=== PATIENT | female | born 1985 | race Caucasian/White ===

== ENCOUNTER → 2020-04-28 | Outpatient (CLI) | payer BC, OTHER ==
[~2020-04-28] MED LIST: BACTRIM DS 8001 TA1 PO; KEFLEX500 MG PO; LANTUS100 U/ML SC; MEDROL DOSEPAK4 MG PO; METFORMIN1000 MG PO; METFORMIN500 MG PO; PRENATAL1 TA3 PO; TORADOL10 MG PO; TUMS X-STR300 MG PO; VICODIN 5/500 505 MG PO; ZANTAC 300300 MG PO
== END | disposition home or self-care (01) ==
LOC: US 15:39
DX: O28.8 Other abnormal findings on antenatal screening of mother (principal); Z3A.36 36 weeks gestation of pregnancy

== ENCOUNTER → 2020-08-24 | Outpatient (CLI) | payer OTHER | END | disposition home or self-care (01) | LOC: COVID19 14:43 | PROVIDERS: ATTEND Internal Medicine | DX: U07.1 COVID-19 (principal) ==

== ENCOUNTER → 2022-09-05 | Outpatient (CLI) | payer OTHER ==
[2022-09-07 15:06] LABS: TB1 Ag VALUE 0.02 IU/mL (.)
[2022-09-08 10:06] LABS: ALTERNARIA ALTERNATA, IGE <0.10 kU/L (Class 0); AMERICAN ELM, IGE 0.11 kU/L (Class 0/I); ASPERGILLUS FUMIGATU, IGE <0.10 kU/L (Class 0); BERMUDA GRASS, IGE 0.12 kU/L (Class 0/I); BIRCH, COMMON SILVER IGE 3.15 kU/L (Class III); CLADOSPORIUM HERBARU, IGE <0.10 kU/L (Class 0); D FARINAE MITE 9.76 kU/L (Class IV); D PTERONYSSINUS 6.74 kU/L (Class IV); MAPLE LEAF SYCAMORE, IGE 0.19 kU/L (Class 0/I); MAPLE/BOX ELDER, IGE 0.83 kU/L (Class II); MOUSE URINE IGE <0.10 kU/L (Class 0); PENICILLIUM CHRYSOGENUM, IGE <0.10 kU/L (Class 0); ROUGH PIGWEED, IGE <0.10 kU/L (Class 0); SHEEP SORREL (DOCK), IGE <0.10 kU/L (Class 0); SHORT RAGWEED, IGE 1.43 kU/L (Class III); WALNUT TREE, IGE 0.13 kU/L (Class 0/I); WHITE ASH, IGE 0.15 kU/L (Class 0/I); WHITE MULBERRY, IGE <0.10 kU/L (Class 0); WHITE OAK, IGE 2.36 kU/L (Class III)
[2022-09-09 00:05] LABS: CORN, IGE <0.10 kU/L (Class 0); MILK (COW), IGE <0.10 kU/L (Class 0); PEANUT, IGE 0.66 kU/L (Class II); SOYBEAN, IGE 0.19 kU/L (Class 0/I); WHEAT, IGE <0.10 kU/L (Class 0)
== END | disposition home or self-care (01) ==
LOC: LAB 12:52
PROVIDERS: ATTEND Family Medicine
DX: J45.40 Moderate persistent asthma, uncomplicated (principal)

== ENCOUNTER → 2022-11-23 | Outpatient (CLI) | payer OTHER ==
[2022-11-23 13:48] LABS: BASO # 0.1 10*3/uL (0.0-0.1); BASO % 1.1 % (0.0-1.0); EOS # 0.1 10*3/uL (0.0-0.4); HEMATOCRIT 42.6 % (37.0-47.0); LYMPH # 1.2 10*3/uL (1.3-4.4); MEAN CELL VOLUME 81.8 fl (81.0-99.0); MEAN CORPUSCULAR HGB 26.3 pg (27.0-31.0); MEAN CORPUSCULAR HGB CONC 32.2 g/dl (33.0-37.0); MEAN PLATELET VOLUME 11.5 fl (9.6-12.3); MONO # 0.4 10*3/uL (0.1-1.0); MONO % 6.9 % (3.0-9.0); NEUT # 3.8 10*3/uL (2.3-7.9); NEUT % 68.8 % (47.0-73.0); PLATELET COUNT AUTOMATED 271 10*3/uL (130-400); RED BLOOD COUNT 5.21 10*6/uL (4.10-5.10); RED CELL DISTRI WIDTH 13.2 % (0-14.5); WHITE BLOOD COUNT 5.5 10*3/uL (4.8-10.8)
[2022-11-25 12:06] LABS: DILUTE PROTHROMBIN TIME 49.2 sec (0.0-47.6); DPT CONFIRM RATIO 1.06 Ratio (0.00-1.34); LUPUS DRVVT 62.2 sec (0.0-47.0); PTT-LA 42.4 sec (0.0-43.5); THROMBIN TIME 17.2 sec (0.0-23.0)
[2022-11-25 13:06] LABS: LUPUS REFLEX INTERPRETATION Comment: (.)
== END | disposition home or self-care (01) ==
LOC: LAB 12:25
PROVIDERS: ATTEND Internal Medicine
DX: J45.50 Severe persistent asthma, uncomplicated (principal)